=== PATIENT | male | born 1950 | race Caucasian/White ===

== ENCOUNTER 2020-10-26 09:36 | Inpatient (IN) | payer BC, OTHER ==
[~2020-10-26] VITALS: Ht 177.8 cm; Wt 83.9 kg
[2020-10-26 07:42] VITALS: BP_SYST 147
[2020-10-26 09:59] VITALS: BP_SYST 146
[2020-10-26 10:29] LABS: BASOPHILS % (AUTO) 0.9 % (0.0-2.0); EOSINOPHILS # (AUTO) 0.1 K/uL (0.0-0.4); EOSINOPHILS % (AUTO) 2.3 % (0.0-4.0); LYMPHOCYTES # (AUTO) 1.2 K/uL (1.0-5.5); LYMPHOCYTES % (AUTO) 29.5 % (20.5-51.5); MEAN CORPUSCULAR HEMOGLOBIN 17 pg (27-31); MEAN CORPUSCULAR HGB CONC 29 % (32-36); MEAN CORPUSCULAR VOLUME 59 fL (79.0-98.0); MONOCYTES # (AUTO) 0.4 K/uL (0.0-1.0); MONOCYTES % (AUTO) 10.8 % (1.7-9.3); NEUTROPHILS # (AUTO) 2.3 K/uL (1.8-7.7); NEUTROPHILS % (AUTO) 56.5 % (40.0-70.0); PLATELET COUNT (AUTO) 242 K/uL (130-430); RED BLOOD CELL COUNT(AUTO) 3.57 MIL/uL (4.2-6.2); RED CELL DISTRIBUTION WIDTH 21.4 % (9.0-15.0)
[2020-10-26 10:36] LABS: CALCIUM 8.3 mg/dL (8.4-11.0); CREATININE 1.26 mg/dL (0.55-1.30); HEMOGLOBIN 6.1 g/dL (14.0-18.0); POTASSIUM 4.3 mmol/L (3.5-5.1)
[2020-10-26 10:42] LABS: ALBUMIN 3.5 g/dL (3.4-4.8); TOTAL BILIRUBIN 0.4 mg/dL (0.0-1.0)
[2020-10-26] MEDS ORDERED: NACL 0.9% 1,000 ML IV ONE (11:00)
[2020-10-26] MEDS ORDERED: SIMV40TA2 PO ×2 (11:27→14:14)
[2020-10-26] MEDS ORDERED: PRO40 PO (11:27)
[2020-10-26] MEDS ORDERED: FESO8TAB PO (11:27)
[2020-10-26] MEDS ORDERED: XALEYE OP (11:27)
[2020-10-26] MEDS ORDERED: ASPI-1393 PO (11:27)
[2020-10-26] MEDS ORDERED: DOXA8TAB2 PO ×2 (11:27→14:14)
[2020-10-26] MEDS ORDERED: DIPHENHYDRAMINE HCL 12.5 MG/5 ML UDC NG ONE (11:30)
[2020-10-26] MEDS ORDERED: ONDANSETRON HCL 4 MG/2 ML VIAL IM PRN (11:30)
[2020-10-26] MEDS ORDERED: ACETAMINOPHEN 325 MG TABLET PO ONE (11:30)
[2020-10-26] MEDS ORDERED: ACETAMINOPHEN 500 MG TABLET PO PRN (11:30)
[2020-10-26] MEDS ORDERED: PANTOPRAZOLE SODIUM 40 MG/VIAL (PROTONIX) IVP ONE (12:00)
[2020-10-26 12:05] LABS: TOTAL IRON BIND. CAPACITY 347 ug/dL (250-450)
[2020-10-26 13:37] VITALS: BP_SYST 153
[2020-10-26] MEDS ORDERED: LISI10TA29 PO (14:14)
[2020-10-26] MEDS ORDERED: LORA10TA7 PO (14:14)
[2020-10-26 16:17] VITALS: BP_SYST 141
[2020-10-26 20:00] VITALS: BP_SYST 153
[2020-10-26] MEDS: PANTOPRAZOLE SODIUM 40 MG/VIAL (PROTONIX) IVP SCH (20:26)
[2020-10-27 00:34] VITALS: BP_SYST 136
[2020-10-27 06:55] LABS: BASOPHILS # (AUTO) 0.1 K/uL (0.0-0.2); BASOPHILS % (AUTO) 1.3 % (0.0-2.0); EOSINOPHILS # (AUTO) 0.3 K/uL (0.0-0.4); EOSINOPHILS % (AUTO) 6.2 % (0.0-4.0); HEMATOCRIT 30.3 % (36-54); HEMOGLOBIN 9.2 g/dL (14.0-18.0); LYMPHOCYTES # (AUTO) 1.5 K/uL (1.0-5.5); LYMPHOCYTES % (AUTO) 27.3 % (20.5-51.5); MEAN CORPUSCULAR HEMOGLOBIN 20 pg (27-31); MEAN CORPUSCULAR HGB CONC 30 % (32-36); MEAN CORPUSCULAR VOLUME 68 fL (79.0-98.0); MONOCYTES # (AUTO) 0.6 K/uL (0.0-1.0); MONOCYTES % (AUTO) 10.2 % (1.7-9.3); PLATELET COUNT (AUTO) 221 K/uL (130-430); RED BLOOD CELL COUNT(AUTO) 4.48 MIL/uL (4.2-6.2); RED CELL DISTRIBUTION WIDTH 29.6 % (9.0-15.0); WHITE BLOOD COUNT (AUTO) 5.4 K/uL (4.8-10.8)
[2020-10-27 07:36] LABS: ALBUMIN 3.4 g/dL (3.4-4.8); CALCIUM 8.5 mg/dL (8.4-11.0); CREATININE 1.08 mg/dL (0.55-1.30); POTASSIUM 4.1 mmol/L (3.5-5.1)
[2020-10-27 07:42] VITALS: BP_SYST 147
[2020-10-27] MEDS: LORATADINE 10 MG TABLET PO SCH (09:45)
[2020-10-27] MEDS: PANTOPRAZOLE SODIUM 40 MG/VIAL (PROTONIX) IVP SCH ×2 (09:45→20:18)
[2020-10-27] MEDS: LISINOPRIL 10 MG TABLET (PRINIVIL) PO SCH (09:46)
[2020-10-27] MEDS: SOD FERRIC GLUC COMPLEX/SUC 125 MG in NS 100 ML IV SCH (09:46)
[2020-10-27 12:00] VITALS: BP_SYST 154
[2020-10-27 16:00] VITALS: BP_SYST 130
[2020-10-27] MEDS: LATANOPROST 2.5 ML DROPS (XALATAN) OP SCH (18:00)
[2020-10-27 20:00] VITALS: BP_SYST 141
[2020-10-27] MEDS: SIMVASTATIN 40 MG TABLET PO SCH (20:17)
[2020-10-27] MEDS: DOXAZOSIN MESYLATE 2 MG TABLET PO SCH (20:17)
[2020-10-28] VITALS: BP_SYST 144
[2020-10-28 06:39] LABS: BASOPHILS # (AUTO) 0.1 K/uL (0.0-0.2); BASOPHILS % (AUTO) 1.3 % (0.0-2.0); EOSINOPHILS # (AUTO) 0.3 K/uL (0.0-0.4); EOSINOPHILS % (AUTO) 5.7 % (0.0-4.0); HEMATOCRIT 31.9 % (36-54); HEMOGLOBIN 9.7 g/dL (14.0-18.0); LYMPHOCYTES # (AUTO) 1.5 K/uL (1.0-5.5); MEAN CORPUSCULAR HEMOGLOBIN 20 pg (27-31); MEAN CORPUSCULAR HGB CONC 30 % (32-36); MEAN CORPUSCULAR VOLUME 67 fL (79.0-98.0); MONOCYTES # (AUTO) 0.5 K/uL (0.0-1.0); MONOCYTES % (AUTO) 9.8 % (1.7-9.3); NEUTROPHILS % (AUTO) 55.2 % (40.0-70.0); PLATELET COUNT (AUTO) 233 K/uL (130-430); RED BLOOD CELL COUNT(AUTO) 4.76 MIL/uL (4.2-6.2); RED CELL DISTRIBUTION WIDTH 30.2 % (9.0-15.0); WHITE BLOOD COUNT (AUTO) 5.3 K/uL (4.8-10.8)
[2020-10-28 07:41] LABS: ALBUMIN 3.5 g/dL (3.4-4.8); CALCIUM 8.4 mg/dL (8.4-11.0); CREATININE 1.09 mg/dL (0.55-1.30); POTASSIUM 3.6 mmol/L (3.5-5.1); TOTAL BILIRUBIN 0.7 mg/dL (0.0-1.0)
[2020-10-28 07:50] VITALS: BP_SYST 138
[2020-10-28] MEDS: PANTOPRAZOLE SODIUM 40 MG/VIAL (PROTONIX) IVP SCH ×2 (09:22→20:18)
[2020-10-28] MEDS: LISINOPRIL 10 MG TABLET (PRINIVIL) PO SCH (09:22)
[2020-10-28] MEDS: LORATADINE 10 MG TABLET PO SCH (09:22)
[2020-10-28] MEDS: SOD FERRIC GLUC COMPLEX/SUC 125 MG in NS 100 ML IV SCH (09:22)
[2020-10-28] MEDS: TOVIAZ 8 MG PO SCH (09:23)
[2020-10-28] MEDS ORDERED: MAGNESIUM CITRATE 300 ML ORAL SOLUTION PO ONE (09:30)
[2020-10-28 11:32] VITALS: BP_SYST 138
[2020-10-28 15:26] VITALS: BP_SYST 135
[2020-10-28] MEDS ORDERED: BISACODYL 5 MG TABLET.DR (DULCOLAX) PO ONE (17:00)
[2020-10-28] MEDS: LATANOPROST 2.5 ML DROPS (XALATAN) OP SCH (18:00)
[2020-10-28] MEDS ORDERED: GOLYTELY / COLYTE SOLUTION 4 LITERS PO ONE (18:00)
[2020-10-28 19:00] VITALS: BP_SYST 137
[2020-10-28 20:00] VITALS: BP_SYST 137
[2020-10-28] MEDS: DOXAZOSIN MESYLATE 2 MG TABLET PO SCH (20:19)
[2020-10-28] MEDS: SIMVASTATIN 40 MG TABLET PO SCH (20:20)
[2020-10-29 01:02] VITALS: BP_SYST 133
[2020-10-29 06:55] LABS: BASOPHILS # (AUTO) 0.1 K/uL (0.0-0.2); EOSINOPHILS # (AUTO) 0.3 K/uL (0.0-0.4); EOSINOPHILS % (AUTO) 4.8 % (0.0-4.0); HEMATOCRIT 29.6 % (36-54); LYMPHOCYTES # (AUTO) 1.3 K/uL (1.0-5.5); LYMPHOCYTES % (AUTO) 19.9 % (20.5-51.5); MEAN CORPUSCULAR HEMOGLOBIN 20 pg (27-31); MEAN CORPUSCULAR HGB CONC 30 % (32-36); MEAN CORPUSCULAR VOLUME 67 fL (79.0-98.0); MONOCYTES # (AUTO) 0.7 K/uL (0.0-1.0); MONOCYTES % (AUTO) 10.5 % (1.7-9.3); NEUTROPHILS # (AUTO) 4.1 K/uL (1.8-7.7); NEUTROPHILS % (AUTO) 63.8 % (40.0-70.0); PLATELET COUNT (AUTO) 223 K/uL (130-430); RED BLOOD CELL COUNT(AUTO) 4.39 MIL/uL (4.2-6.2); RED CELL DISTRIBUTION WIDTH 30.2 % (9.0-15.0); WHITE BLOOD COUNT (AUTO) 6.4 K/uL (4.8-10.8)
[2020-10-29] MEDS ORDERED: SIMETHICONE 40 MG/0.6 ML ML ONE (06:57)
[2020-10-29] MEDS ORDERED: fentaNYL CITRATE/PF 100 MCG/2 ML AMP ONE (06:58)
[2020-10-29 07:21] LABS: INR 1.2 (0.80-1.20); PROTHROMBIN TIME 12.3 SECS (9.5-12.5)
[2020-10-29 07:30] VITALS: BP_SYST 156
[2020-10-29] MEDS: MEPERIDINE 100 MG INJ. 100 MG/ML VIAL ONE ×2 (08:41→08:48)
[2020-10-29] MEDS: MIDAZOLAM HCL 5 MG/5 ML VIAL ONE ×3 (08:41→08:56)
[2020-10-29 09:46] VITALS: BP_SYST 145
[2020-10-29] MEDS ORDERED: PANTOPRAZOLE SODIUM 40 MG/VIAL (PROTONIX) IVP ONE (10:00)
[2020-10-29] MEDS: LORATADINE 10 MG TABLET PO SCH (10:22)
[2020-10-29] MEDS: TOVIAZ 8 MG PO SCH (10:22)
[2020-10-29] MEDS: LISINOPRIL 10 MG TABLET (PRINIVIL) PO SCH (10:22)
[2020-10-29] MEDS: SOD FERRIC GLUC COMPLEX/SUC 125 MG in NS 100 ML IV SCH (10:33)
[2020-10-29 12:00] VITALS: BP_SYST 146
[2020-10-29 13:08] VITALS: BP_SYST 146
[2020-10-30] MEDS ORDERED: PANTOPRAZOLE SODIUM 40 MG/VIAL (PROTONIX) IVP SCH (09:00)
== END 2020-10-29 13:40 | disposition home health service (06) | DRG 392 ==
LOC: SED 09:36 → STU 10:46
PROVIDERS: ADMIT Internal Medicine; ATTEND Internal Medicine
PROC: 30233N1 Transfusion of Nonautologous Red Blood Cells into Peripheral Vein, Percutaneous Approach (ICD-10-PCS; 2020-10-27)
PROC: 0DB78ZX Excision of Stomach, Pylorus, Via Natural or Artificial Opening Endoscopic, Diagnostic (ICD-10-PCS; principal; 2020-10-29 09:00)
PROC: 0DBN8ZZ Excision of Sigmoid Colon, Via Natural or Artificial Opening Endoscopic (ICD-10-PCS; 2020-10-29 09:00)
DX: K20.90 Esophagitis, unspecified without bleeding (principal); K29.70 Gastritis, unspecified, without bleeding; K44.9 Diaphragmatic hernia without obstruction or gangrene; K57.90 Diverticulosis of intestine, part unspecified, without perforation or abscess without bleeding; K63.5 Polyp of colon; K64.4 Residual hemorrhoidal skin tags; N40.0 Benign prostatic hyperplasia without lower urinary tract symptoms; I10 Essential (primary) hypertension; E66.3 Overweight; D50.9 Iron deficiency anemia, unspecified; Z20.822 Contact with and (suspected) exposure to COVID-19; K59.00 Constipation, unspecified; E78.5 Hyperlipidemia, unspecified; D72.819 Decreased white blood cell count, unspecified; Z88.8 Allergy status to other drugs, medicaments and biological substances; Z79.82 Long term (current) use of aspirin; Z80.0 Family history of malignant neoplasm of digestive organs; Z86.73 Personal history of transient ischemic attack (TIA), and cerebral infarction without residual deficits; Z87.891 Personal history of nicotine dependence
CPT/HCPCS: 36415; 36430; 80053; 83010; 83540; 83550; 85025; 85044; 85610-TC; 86886; 86900; 86901; 86920; 88305; 88312; 88313; 99291; C9113; G0378; J2175; J2250; J2916; J3010; J7030; J7050; P9021